=== PATIENT | male | born 1995 | race Caucasian/White ===

== ENCOUNTER 2022-10-19 08:47 | Outpatient (CLI) | payer BC | END 2022-10-19 23:59 | disposition home or self-care (01) | LOC: RAD 08:47 | PROVIDERS: ATTEND Nurse Practitioner Family | DX: S83.242A Other tear of medial meniscus, current injury, left knee, initial encounter (principal); M25.562 Pain in left knee; R22.42 Localized swelling, mass and lump, left lower limb; X58.XXXA Exposure to other specified factors, initial encounter; Y93.89 Activity, other specified; Y92.89 Other specified places as the place of occurrence of the external cause; Y99.8 Other external cause status | CPT/HCPCS: 73721 ==

== ENCOUNTER 2024-12-01 12:18 | Outpatient (CLI) | payer BC ==
--- NOTE | 2024-12-01 16:03 | RADIOLOGY REPORT ---
CLINICAL HISTORY: PAIN IN LEFT KNEE COMPARISON: MRI LOWER EXTREMITY LEFT on DOS: 10/19/22 TECHNIQUE: Multisequence multiplanar MRI images of the left knee were obtained without contrast. FINDINGS: Cruciate ligaments: Mild edema along the course of the ACL, may be sequelae of sprain. ACL fibers appear largely intact. PCL is intact. Extensor mechanism: Quadriceps mechanism and patellar tendon are intact. Collateral ligaments: Medial and lateral collateral ligaments are intact and otherwise unremarkable. Menisci: There is edema at the meniscocapsular junction of the posterior horn of the medial meniscus near the posterior horn / body junction, possible meniscocapsular injury in the appropriate clinical setting. There is mild T2 hyperintense signal in the adjacent portions of the posterior horn of the medial meniscus without definite extension to the articular surface to suggest tear. Lateral meniscus is intact. Cartilage: No focal chondral defect or significant chondromalacia. Bones: Focal marrow edema in the lateral tibial plateau, possible contusion or stress related changes/stress injury. Questionable small subchondral fracture at the posterior aspect of the lateral tibial plateau. Mild marrow edema at the medial aspect of the medial tibial plateau, possible mild contusion. Joint fluid: No significant joint effusion. Other: No other significant findings. IMPRESSION: 1. Focal marrow edema in the lateral tibial plateau, possible contusion or stress related changes/stress injury in the appropriate clinical setting. Questionable subtle small subchondral fracture of the posterior aspect of the lateral tibial plateau. 2. Mild marrow edema in the medial aspect of the medial tibial plateau, possible mild contusion. 3. Edema at the meniscocapsular junction of the posterior horn of the medial meniscus near the posterior horn / body junction, possible meniscocapsular injury in the appropriate clinical setting. Ill-defined intrasubstance signal in the medial meniscus near this location without definite extension to the articular surface to suggest tear. 4. Mild edema along the course of the ACL, possible sprain. ACL fibers appear largely intact.
== END 2024-12-01 23:59 | disposition home or self-care (01) ==
LOC: MRI02 12:18
PROVIDERS: ATTEND Nurse Practitioner Family
DX: R60.0 Localized edema (principal); M25.562 Pain in left knee
CPT/HCPCS: 73721